=== PATIENT | male | born 1980 | race Caucasian/White ===

== ENCOUNTER 2022-05-26 22:09 | Emergency (ER) | payer OTHER, SELFPAY ==
--- NOTE | 2022-05-26 22:37 | ED_ITS ---
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 He reports needlestick on the finger with the center stylette portion of the IO needle that he had put in a patient while attempting to place it in a safe disposal device. Small amount of blood noted under glove when he removed it. He did wash the area. Otherwise denies changes in health. Reports up-to-date on vaccines. Review of Systems Skin/Breast: Reports: other (See HPI) Physical Exam Const: COMMON NORMALS: patient oriented x3 and healthy appearing GENERAL APPEARANCE: cooperative and well developed Extremity: NARRATIVE EXTREMITY EXAM: Small nonbleeding injury noted to the distal finger Neuro: COMMON NORMALS: patient oriented x3 MDM - General Adult Medical Decision Making 41-year-old gentleman up to date on vaccines without known history of hepatitis or HIV presenting due to work-related needlestick. 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 Lab work ordered reviewed with hepatitis and HIV pending and reviewed at time of note completion. I offered postexposure prophylaxis for HIV including discussing risk and benefits. I discussed risks of nondetection if patient recently exposed to HIV. Patient wishes to forego postexposure prophylaxis at this time pending laboratory studies from patient. I discussed that patient can initiate postexposure prophylaxis if needed within 72 hours of exposure. I discussed need for follow-up with repeat lab. Patient discharged from ER in satisfactory condition. Lab Data 05/26/22 23:18 05/26/22 23:18 Laboratory Results WBC 9.3 10^3/uL (4.0-10.0) 05/26/22 23:18 RBC 5.00 10^6/uL (4.1-5.3) 05/26/22 23:18 Hgb 15.3 g/dL (11.7-16.6) 05/26/22 23:18 Hct 45.3 % (42.0-52.0) 05/26/22 23:18 MCV 90.6 fl (80-94) 05/26/22 23:18 MCH 30.6 pg (28.0-34.0) 05/26/22 23:18 MCHC 33.8 g/dL (30.0-36.0) 05/26/22 23:18 RDW 12.6 % (12.1-15.1) 05/26/22 23:18 Plt Count 239 10^3/cmm (130-400) 05/26/22 23:18 MPV 9.7 fL (7.4-10.4) 05/26/22 23:18 Neut % (Auto) 71.1 % 05/26/22 23:18 Lymph % (Auto) 19.5 % 05/26/22 23:18 Clark % (Auto) 8.3 % 05/26/22 23:18 Eos % (Auto) 0.6 % 05/26/22 23:18 Baso % (Auto) 0.3 % 05/26/22 23:18 Neut # (Auto) 6.59 10^3/uL (1.8-7.7) 05/26/22 23:18 Lymph # (Auto) 1.8 10^3/uL (0.8-4.8) 05/26/22 23:18 Clark # (Auto) 0.8 10^3/uL (0.2-0.9) 05/26/22 23:18 Eos # (Auto) 0.1 10^3/uL (0.0-0.8) 05/26/22 23:18 Baso # (Auto) 0.0 10^3/uL (0.0-0.1) 05/26/22 23:18 Nucleated RBC % (auto) 0 % 05/26/22 23:18 Nucleated RBCs # 0.0 /100WBC 05/26/22 23:18 Sodium 139 mmol/L (136-145) 05/26/22 23:18 Potassium 4.0 mmol/L (3.5-5.1) 05/26/22 23:18 Chloride 101 mmol/L (98-107) 05/26/22 23:18 Carbon Dioxide 29 mmol/L (22-29) 05/26/22 23:18 Anion Gap 13.0 (5-19) 05/26/22 23:18 BUN 13 mg/dL (6-20) 05/26/22 23:18 Creatinine 0.8 mg/dL (0.7-1.2) 05/26/22 23:18 GFR Calculation 106.0 mL/min (90-130) 05/26/22 23:18 Glucose 102 mg/dL (65-115) 05/26/22 23:18 Calculated Osmolality 288 mOsm/kg (285-295) 05/26/22 23:18 Calcium 9.3 mg/dL (8.5-10.5) 05/26/22 23:18 Total Bilirubin 0.4 mg/dL (0.15-1.2) 05/26/22 23:18 AST 25 U/L (0-40) 05/26/22 23:18 ALT 45 U/L (0-41) H 05/26/22 23:18 Alkaline Phosphatase 94 U/L (40-130) 05/26/22 23:18 Total Protein 7.3 g/dL (6.6-8.7) 05/26/22 23:18 Albumin 4.7 g/dL (3.5-5.2) 05/26/22 23:18 Globulin 2.6 g/dL (1.3-4.6) 05/26/22 23:18 Hepatitis A IgM Ab Non-reactive (Nonreactive) 05/26/22 23:18 Hep Bs Antigen Non-reactive (Nonreactive) 05/26/22 23:18 Hep B Core IgM Ab Non-reactive (Nonreactive) 05/26/22 23:18 Hepatitis C Antibody Non-reactive (Nonreactive) 05/26/22 23:18 HIV 1&2 Ab & HIV 1 Ag Non-reactive (Non-Reactiv) 05/26/22 23:18 HIV 1&2 Antibody Non-reactive (Non-Reactiv) 05/26/22 23:18 Discharge Plan Discharge Patient Disposition: Home Clinical Impression: Exposure to blood or body fluid Condition: Stable Prescriptions: No Action azithromycin 250 mg tablet See Rx Instructions PO .COMPLEX Qty: 6 0RF Rx Instructions: take 500 mg today (day 1), then 250 mg for 4 days (days 2-5) PO dexamethasone [Decadron] 6 mg tablet 6 mg PO DAILY Qty: 7 0RF Discharge Orders: Discharge ED (Routine); Ordered 05/27/22 Ordered By: Eugene Barreto Referrals: Ace Lockett FNP [Nurse Practitioner] - Patient Instructions: Needle Stick Injuries (ED) Coding Level of Care Code ED Medical Service Representative for [facility] Fwd Exam Problem Focused
[2022-05-26 23:25] LABS: Basophils % 0.3 %; Eosinophils # 0.1 10^3/uL (0.0-0.8); Eosinophils % 0.6 %; Hematocrit 45.3 % (42.0-52.0); Hemoglobin 15.3 g/dL (11.7-16.6); Lymphocytes # 1.8 10^3/uL (0.8-4.8); Lymphocytes % 19.5 %; Mean Corpuscular HGB Conc 33.8 g/dL (30.0-36.0); Mean Corpuscular Hemoglobin 30.6 pg (28.0-34.0); Mean Corpuscular Volume 90.6 fl (80-94); Mean Platelet Volume 9.7 fL (7.4-10.4); Monocytes # 0.8 10^3/uL (0.2-0.9); Monocytes % 8.3 %; Neutrophils # 6.59 10^3/uL (1.8-7.7); Neutrophils % 71.1 %; Nucleated Red Blood Cells % 0 %; Platelet Count 239 10^3/cmm (130-400); Red Cell Distribution Width 12.6 % (12.1-15.1); White Blood Count 9.3 10^3/uL (4.0-10.0)
[2022-05-26 23:43] LABS: Alanine Aminotransferase 45 U/L (0-41); Albumin Level 4.7 g/dL (3.5-5.2); Alkaline Phosphatase 94 U/L (40-130); Aspartate Amino Transferase 25 U/L (0-40); Blood Urea Nitrogen 13 mg/dL (6-20); Calcium 9.3 mg/dL (8.5-10.5); Carbon Dioxide 29 mmol/L (22-29); Chloride 101 mmol/L (98-107); Globulin 2.6 g/dL (1.3-4.6); Glucose 102 mg/dL (65-115); Osmolality Calculated 288 mOsm/kg (285-295); Sodium 139 mmol/L (136-145); Total Bilirubin 0.4 mg/dL (0.15-1.2); Total Protein 7.3 g/dL (6.6-8.7)
[2022-05-27 00:41] LABS: Hepatitis A Antibody IgM Non-Reactive (Nonreactive); Hepatitis B Core IgM Non-Reactive (Nonreactive); Hepatitis B Surface Antigen Non-Reactive (Nonreactive); Hepatitis C Virus Antibody Non-Reactive (Nonreactive)
[2022-05-27 01:31] LABS: HIV 1 & 2 Antigen Non-Reactive (Non-Reactiv)
[2022-05-27 01:32] LABS: HIV 1 & 2 Antibody Non-Reactive (Non-Reactiv)
== END 2022-05-27 01:17 | disposition home or self-care (01) ==
PROVIDERS: Emergency Provider Emergency Medicine; PCP Registered Nurse
DX: Z77.21 Contact with and (suspected) exposure to potentially hazardous body fluids (principal); S61.031A Puncture wound without foreign body of right thumb without damage to nail, initial encounter; W46.1XXA Contact with contaminated hypodermic needle, initial encounter; Y99.0 Civilian activity done for income or pay
CPT/HCPCS: 80053; 80074; 85025; 87806; 99283

== ENCOUNTER → 2022-07-07 15:07 | Outpatient (BNVA) | payer OTHER, SELFPAY | PROVIDERS: PCP Registered Nurse; Visit Provider Emergency Medicine | DX: Z77.21 Contact with and (suspected) exposure to potentially hazardous body fluids (principal) | CPT/HCPCS: 80053; 80074; 85025; 87806 ==

== ENCOUNTER → 2023-09-08 09:40 | Outpatient (BNVA) | payer OTHER, SELFPAY | PROVIDERS: PCP Registered Nurse; Visit Provider Registered Nurse | DX: T14.90XA Injury, unspecified, initial encounter (principal); W46.0XXA Contact with hypodermic needle, initial encounter; W46.1XXA Contact with contaminated hypodermic needle, initial encounter | CPT/HCPCS: 86803; 87806 ==